=== PATIENT | male | born 1970 | race Caucasian/White ===

== ENCOUNTER 2016-04-20 03:38 | Inpatient (IN) | payer MEDICARE, MEDICAID ==
[2016-04-20] VITALS (10 sets, daily range): BP systolic 78–124; BP diastolic 44–68
[~2016-04-20] VITALS: Ht 165.1 cm; Wt 63.5 kg
--- NOTE | ~2016-04-20 | O ---
[place], [place] OPERATIVE NOTE [id number] UNIT #: [id number] ROOM: 406 DOCTOR: PAMELA DURAN MD BIRTHDATE: [birth year] DOS: 04/20/2016 PREOPERATIVE DIAGNOSIS: Large left elbow abscess. POSTOPERATIVE DIAGNOSIS: Large left elbow abscess. PROCEDURE: Incision and drainage and packing of the abscess. SURGEON: Pamela Duran MD DESCRIPTION OF PROCEDURE: After MAC anesthesia, the patient's left elbow was prepped and draped. There is fluctuant area AND An 11 blade used to decompress it. A large amount of pus came out, cultures were taken. Incision was enlarged to accommodate my finger to break all the loculi which was done. After all the pus was evacuated, the area was cleaned with peroxide and Betadine and then 1 inch iodoform gauze inserted as a pack and dressing applied. The patient tolerated the procedure well and was sent to room. Pamela Duran MD CM:OPRECORD:OPERATIVE NOTE [id number] PAMELA DURAN MD 05/25/16 1338 interface
--- NOTE | ~2016-04-20 | PR ---
[place], [place] PROGRESS NOTE [facility]: [id number] UNIT #: [id number] ROOM: 406 DOCTOR: PAMELA DURAN MD BIRTHDATE: [birth year] DOS: 04/22/2016 This is postop visit day 2. The patient had a very large abscess, left elbow and extensive cellulitis around it. It was drained out. Today, I came in and removed his bandage and removed the packing and put a 4 x 4 in there. There is still some induration around the area of drainage and extending inferiorly to the volar surface of the forearm. However, this looks much better than the day we did surgery on him and the extensive edema of the posterior part upper arm and the posterior part of the lower arm is almost gone. We will follow with the patient. From my standpoint, he is ready to be discharged, but will be up to the family physician. Pamela Duran MD CM:PNTRANS [id number] PAMELA DURAN MD 05/25/16 1233 interface
--- NOTE | ~2016-04-20 | PR ---
[place], [place] PROGRESS NOTE NAME: CELE ALONZO [facility] #: [id number] UNIT #: [id number] ROOM: 406 DOCTOR: PAMELA DURAN MD BIRTHDATE: [birth year] DOS: 04/21/2016 SUBJECTIVE: The patient is status post incision and drainage of large abscess of the left elbow. The patient is still complaining a lot of pain, although he is on Toradol. He is not getting out of bed actually. I examined his left arm. There is a swelling that is receding rather. Dressings with the packing is still in there. His legs are nontender; however, since the postop, I have been stressing on him to get up and walk around and also he is trying not to extend his elbow. IMPRESSION: Status post incision and drainage of large left elbow abscess with extensive cellulitis around it. Clinically, doing better, but he is resisting motion of his elbow, which he should be trying to extend this, so it would not freeze there. Also, I told him that he needs to get up and walk. As for the pain medication, I think the reason he is on Toradol is because he has a history of drug abuse and I think that is a good idea, not to give him narcotic; however, if we need then we can add on Vicodin and narco type of medication, which I had ordered postop, so we will see if we can give him something different with it and help him with the pain. As far as discharge, I think it is up to the admitting physician when he could be discharged. From my standpoint, I will change the dressing in 2 days, which would be tomorrow whether he is still in the hospital or not. If he is here, I will change it myself. If not, then, we will make some arrangement for that to be changed especially packing has to be changed. We do not have any culture report yet, so if the culture report changes, then we will change the antibiotics accordingly. Pamela Duran MD CM:PNTRANS [id number] PAMELA DURAN MD 04/21/16 2228 interface
[~2016-04-20 03:38] MED LIST: ADDERALL XR20 MG PO; ADDERALL20 MG PO; ANAPROX DS550 MG PO; ATIVAN; BACTROBAN OINT22 GM PO; CATAFLAM50 MG PO; CEPHALEXIN500 M1 PO; CIPRO500 MG PO; CORDROL20 MG PO; CYCLOBENZAPRINE10 MG PO; FIORICET 325 MG1 TAB PO; FLEXERIL10 MG PO; FLEXERIL5 MG PO; FLONASE0.05 MG/AC NS; HYDROCODONE BIT1 T11 PO; KEFLEX500 MG PO; MOTRIN CHI100 MG/51 PO; MOTRIN800 MG PO; Motrin,Rufen800 MG PO; NAPROSYN500 MG PO; NEURONTIN300 MG PO; NKHM; NORCO 10-325 T1 EACH PO; PERCOCET 325 MG1 TA2 PO; PERCOCET 325 MG1 TA3 PO; PERCOCET 325 MG1 TAB PO; PERCOCET 650 MG1 TA1; PREDNISONE20 MG PO; ROBAXIN500 MG PO; TORADOL10 MG PO; TRAMADOL HCL50 MG PO; VICODIN 5/500 505 MG PO; VICODIN ES 7501 TAB PO; VOLTAREN50 M1 PO; WELLBUTRIN75 MG PO; XANAX1 MG; XANAX1 MG PO; ZANTAC150 MG PO
[2016-04-20] MEDS ORDERED: ADDERALL15 MG PO (03:45)
[2016-04-20 04:18] LABS: BASO # 0.1 10*3/uL (0.0-0.1); BASO % 0.4 % (0.0-1.0); EOS % 0.2 % (1.0-4.0); HEMATOCRIT 43.7 % (42.0-52.0); LYMPH # 1.8 10*3/uL (1.3-4.4); LYMPH % 11.4 % (27.0-41.0); MEAN CELL VOLUME 87.9 fl (80.0-94.0); MEAN CORPUSCULAR HGB 30.2 pg (27.0-31.0); MEAN CORPUSCULAR HGB CONC 34.3 g/dl (33.0-37.0); MEAN PLATELET VOLUME 10.2 fl (9.6-12.3); MONO # 1.2 10*3/uL (0.1-1.0); MONO % 7.7 % (3.0-9.0); NEUT # 12.8 10*3/uL (2.3-7.9); PLATELET COUNT AUTOMATED 208 10*3/uL (130-400); RED BLOOD COUNT 4.97 10*6/uL (4.50-5.90); RED CELL DISTRI WIDTH 13.1 % (0-14.5); WHITE BLOOD COUNT 15.9 10*3/uL (4.8-10.8)
[2016-04-20 04:31] LABS: BILIRUBIN NEGATIVE (NEGATIVE); BLOOD 2+ (NEGATIVE); CLARITY CLEAR (CLEAR); COLOR YELLOW (YELLOW); GLUCOSE NEGATIVE (NEGATIVE); KETONE NEGATIVE (NEGATIVE); LEUKO ESTERASE NEGATIVE (NEGATIVE); NITRITE NEGATIVE (NEGATIVE); PROTEIN NEGATIVE (NEGATIVE); SPECIFIC GRAVITY <= 1.005 (1.005-1.030); UROBILINOGEN 0.2 E.U./dl (0.2-1.0)
[2016-04-20 04:41] LABS: ALBUMIN 3.2 gm/dl (3.1-4.5); ALKALINE PHOSPHATASE 54 U/L (45-117); BILIRUBIN, TOTAL 0.5 mg/dl (0.2-1.0); BUN 11 mg/dl (7-24); CARBON DIOXIDE 26 mmol/L (21-32); CHLORIDE 101 mmol/L (98-107); EST GLOM FILT AFRICAN AMERICAN > 60 ml/min; GLUCOSE 125 mg/dL (65-99); POTASSIUM 3.7 mmol/L (3.5-5.1); SGOT/AST 16 IU/L (3-35); SGPT/ALT 20 U/L (12-78); SODIUM 136 mmol/L (136-145); TOTAL PROTEIN 7.2 gm/dL (6.4-8.2)
[2016-04-20 04:41] LABS: RBC 16-20 rbc/hpf (0-2); URINE REFLEX COMMENT YES (NO); WBC 0-2 wbc/hpf (0-5)
[2016-04-20 04:42] LABS: URINE AMPHETAMINES < 1000 (1000ng/ml); URINE BARBITURATES < 200 (200ng/ml); URINE COCAINE < 300 (300ng/ml)
[2016-04-20 06:58] LABS: MAGNESIUM 1.9 mg/dL (1.5-2.1)
[2016-04-20 06:59] LABS: HEMOGLOBIN A1c 5.3 % (4.8-5.6)
[2016-04-20 07:34] LABS: FOLIC ACID 5.48 ng/mL (>5.38)
[2016-04-21] VITALS: BP 84/48
[2016-04-21 02:00] VITALS: BP 97/58
[2016-04-21 06:25] LABS: BASO % 0.8 % (0.0-1.0); EOS # 0.1 10*3/uL (0.0-0.4); EOS % 1.5 % (1.0-4.0); LYMPH # 1.5 10*3/uL (1.3-4.4); LYMPH % 28.8 % (27.0-41.0); MEAN CORPUSCULAR HGB 29.5 pg (27.0-31.0); MEAN PLATELET VOLUME 9.5 fl (9.6-12.3); MONO # 0.6 10*3/uL (0.1-1.0); MONO % 10.6 % (3.0-9.0); NEUT # 3.1 10*3/uL (2.3-7.9); NEUT % 58.1 % (47.0-73.0); RED BLOOD COUNT 3.87 10*6/uL (4.50-5.90); RED CELL DISTRI WIDTH 13.6 % (0-14.5); WHITE BLOOD COUNT 5.3 10*3/uL (4.8-10.8)
[2016-04-21 06:44] LABS: ALBUMIN 2.3 gm/dl (3.1-4.5); ALKALINE PHOSPHATASE 139 U/L (45-117); BILIRUBIN, TOTAL 0.3 mg/dl (0.2-1.0); BUN 10 mg/dl (7-24); CARBON DIOXIDE 24 mmol/L (21-32); CHLORIDE 110 mmol/L (98-107); EST GLOM FILT AFRICAN AMERICAN > 60 ml/min; GLUCOSE 99 mg/dL (65-99); MAGNESIUM 2.1 mg/dL (1.5-2.1); POTASSIUM 4.3 mmol/L (3.5-5.1); SGOT/AST 69 IU/L (3-35); SGPT/ALT 46 U/L (12-78); SODIUM 140 mmol/L (136-145); TOTAL PROTEIN 5.4 gm/dL (6.4-8.2)
[2016-04-21 07:41] VITALS: BP 72/58
[2016-04-21 07:58] LABS: HEMATOCRIT 35.6 % (42.0-52.0); HEMOGLOBIN 11.4 g/dl (14.0-18.0); PLATELET COUNT AUTOMATED 125 10*3/uL (130-400)
[2016-04-21 12:00] VITALS: BP 105/49
[2016-04-21 16:00] VITALS: BP 109/52
[2016-04-21 20:00] VITALS: BP 117/72
[2016-04-22] VITALS: BP 107/58; BP 108/67
[2016-04-22 06:53] LABS: HEMOGLOBIN 12.5 g/dl (14.0-18.0); MEAN CELL VOLUME 89.4 fl (80.0-94.0); MEAN CORPUSCULAR HGB 29.4 pg (27.0-31.0); MEAN CORPUSCULAR HGB CONC 32.9 g/dl (33.0-37.0); MEAN PLATELET VOLUME 9.5 fl (9.6-12.3); RED BLOOD COUNT 4.25 10*6/uL (4.50-5.90); RED CELL DISTRI WIDTH 13.4 % (0-14.5); WHITE BLOOD COUNT 5.3 10*3/uL (4.8-10.8)
[2016-04-22 06:56] LABS: PLATELET COUNT AUTOMATED 184 10*3/uL (130-400)
[2016-04-22 07:01] LABS: BUN 7 mg/dl (7-24); CARBON DIOXIDE 26 mmol/L (21-32); CHLORIDE 111 mmol/L (98-107); EST GLOM FILT AFRICAN AMERICAN > 60 ml/min; GLUCOSE 79 mg/dL (65-99); MAGNESIUM 2.3 mg/dL (1.5-2.1); PHOSPHOROUS 2.7 mg/dL (2.5-4.9); POTASSIUM 4.5 mmol/L (3.5-5.1); SODIUM 143 mmol/L (136-145)
[2016-04-22 07:52] LABS: ATYPICAL LYMPHS 5 % (0-0); BASOPHIL # 0.1 10*3/uL (0-0.1); BASOPHILS 2 % (0-1); EOSINOPHIL # 0.2 10*3/uL (0-0.4); EOSINOPHILS 3 % (1-4); LYMPHOCYTE # 2.2 10*3/uL (1.3-4.4); MONOCYTE # 0.3 10*3/uL (0.1-1.0); NEUTROPHIL # 2.5 10*3/uL (2.3-7.9); NEUTROPHILS 48 % (47-73); PLATELET SUFFICIENCY NORMAL (NORMAL); TOTAL CELLS COUNTED 100 #CELLS
[2016-04-22 08:00] VITALS: BP 136/67
[2016-04-22 12:00] VITALS: BP 146/62
[2016-04-22] MEDS ORDERED: DOXYCYCLINE100 M3 PO (13:20)
[2016-04-22] MEDS ORDERED: Motrin,Rufen800 MG PO (13:22)
== END 2016-04-22 15:18 | disposition home or self-care (01) | DRG 871 ==
LOC: ED 03:38 → EDHOLD 05:23 → 4E 11:55
PROVIDERS: Emergency Medicine Emergency Medical Services; Hospitalist; Internal Medicine
PROC: 0H9EXZZ Drainage of Left Lower Arm Skin, External Approach (ICD-10-PCS; principal; 2016-04-20)
DX: A41.9 Sepsis, unspecified organism (principal); E43 Unspecified severe protein-calorie malnutrition; L02.414 Cutaneous abscess of left upper limb; L03.114 Cellulitis of left upper limb; F11.23 Opioid dependence with withdrawal; F90.9 Attention-deficit hyperactivity disorder, unspecified type; R79.82 Elevated C-reactive protein (CRP); F17.200 Nicotine dependence, unspecified, uncomplicated; E55.9 Vitamin D deficiency, unspecified; R70.0 Elevated erythrocyte sedimentation rate; Z79.899 Other long term (current) drug therapy; Z88.0 Allergy status to penicillin; Z91.041 Radiographic dye allergy status; Z80.1 Family history of malignant neoplasm of trachea, bronchus and lung; Z80.8 Family history of malignant neoplasm of other organs or systems; Z68.23 Body mass index [BMI] 23.0-23.9, adult; Z82.49 Family history of ischemic heart disease and other diseases of the circulatory system

== ENCOUNTER 2016-06-14 13:00 | Emergency (ER) | payer MEDICARE, MEDICAID ==
[~2016-06-14] VITALS: Ht 165.1 cm; Wt 71.7 kg
[~2016-06-14 13:00] MED LIST changes: +ADDERALL15 MG PO; +DOXYCYCLINE100 M3 PO
[2016-06-14 13:04] VITALS: BP 134/90
[2016-06-14] MEDS ORDERED: SUBOXONE 12 MG1 EACH SL (13:05)
== END 2016-06-14 14:36 | disposition left against medical advice (07) ==
LOC: ED 13:00
DX: S29.011A Strain of muscle and tendon of front wall of thorax, initial encounter (principal); F17.200 Nicotine dependence, unspecified, uncomplicated; Z88.0 Allergy status to penicillin; Z91.041 Radiographic dye allergy status; W45.8XXA Other foreign body or object entering through skin, initial encounter; W27.8XXA Contact with other nonpowered hand tool, initial encounter; Y93.89 Activity, other specified; Y92.89 Other specified places as the place of occurrence of the external cause; Y99.0 Civilian activity done for income or pay

== ENCOUNTER 2016-12-06 16:40 | Emergency (ER) | payer MEDICARE ==
[~2016-12-06] VITALS: Wt 81.6 kg
[~2016-12-06 16:40] MED LIST changes: +SUBOXONE 12 MG1 EACH SL
[2016-12-06 17:56] VITALS: BP 110/56
[2016-12-06] MEDS ORDERED: Zofran4 MG PO (17:56)
== END 2016-12-06 19:37 | disposition home or self-care (01) ==
LOC: ED 16:40
DX: F11.29 Opioid dependence with unspecified opioid-induced disorder (principal); Z88.0 Allergy status to penicillin; Z91.041 Radiographic dye allergy status; Z79.899 Other long term (current) drug therapy; Z87.891 Personal history of nicotine dependence

== ENCOUNTER 2017-02-21 12:29 | Emergency (ER) | payer MEDICARE ==
[~2017-02-21 12:29] MED LIST changes: +Zofran4 MG PO
[2017-02-21 12:40] VITALS: BP 127/74
== END 2017-02-21 14:28 | disposition home or self-care (01) ==
LOC: ED 12:29
DX: S66.911A Strain of unspecified muscle, fascia and tendon at wrist and hand level, right hand, initial encounter (principal); F17.200 Nicotine dependence, unspecified, uncomplicated; F11.10 Opioid abuse, uncomplicated; Z88.0 Allergy status to penicillin; Z88.8 Allergy status to other drugs, medicaments and biological substances; W22.01XA Walked into wall, initial encounter; Y93.89 Activity, other specified; Y92.89 Other specified places as the place of occurrence of the external cause; Y99.8 Other external cause status

== ENCOUNTER 2017-03-13 08:05 | Inpatient (IN) | payer MEDICARE ==
[~2017-03-13] VITALS: Ht 165.1 cm; Wt 57.6 kg
[2017-03-13 08:05] VITALS: BP 138/83
[2017-03-13 08:27] VITALS: BP 134/84
[2017-03-13 08:30] VITALS: BP 106/71; BP 126/83
[2017-03-13 08:31] LABS: BASO # 0.1 10*3/uL (0.0-0.1); BASO % 0.7 % (0.0-1.0); EOS # 0.1 10*3/uL (0.0-0.4); EOS % 1.5 % (1.0-4.0); HEMATOCRIT 42.6 % (42.0-52.0); HEMOGLOBIN 14.1 g/dl (14.0-18.0); LYMPH # 1.9 10*3/uL (1.3-4.4); LYMPH % 25.2 % (27.0-41.0); MEAN CELL VOLUME 88.6 fl (80.0-94.0); MEAN CORPUSCULAR HGB 29.3 pg (27.0-31.0); MEAN CORPUSCULAR HGB CONC 33.1 g/dl (33.0-37.0); MEAN PLATELET VOLUME 8.8 fl (9.6-12.3); MONO # 0.5 10*3/uL (0.1-1.0); MONO % 6.4 % (3.0-9.0); NEUT % 65.9 % (47.0-73.0); PLATELET COUNT AUTOMATED 168 10*3/uL (130-400); RED BLOOD COUNT 4.81 10*6/uL (4.50-5.90); RED CELL DISTRI WIDTH 14.6 % (0-14.5); WHITE BLOOD COUNT 7.5 10*3/uL (4.8-10.8)
--- NOTE | 2017-03-13 08:38 | NUR ---
[place] STAFF WILL ASSESS PATIENT FOR NEW VISION SERVICES. ZO SHORE B.A. SUCTION OPERATOR
[2017-03-13 08:39] LABS: ACT PARTIAL THROMBO TIME 23.5 SECONDS (20.8-31.5)
[2017-03-13 08:49] LABS: ALBUMIN 3.7 gm/dl (3.1-4.5); ALKALINE PHOSPHATASE 67 U/L (45-117); BUN 13 mg/dl (7-24); CHLORIDE 101 mmol/L (98-107); CREATININE 1.01 mg/dL (0.70-1.30); POTASSIUM 3.6 mmol/L (3.5-5.1); SGOT/AST 24 IU/L (3-35); SGPT/ALT 23 U/L (12-78); SODIUM 138 mmol/L (136-145); TOTAL PROTEIN 7.8 gm/dL (6.4-8.2)
[2017-03-13 08:51] LABS: TROPONIN I < 0.015 ng/ml (<0.045)
[2017-03-13 08:57] LABS: ETHYL ALCOHOL < 3.0 mg/dl (<3)
[2017-03-13 09:20] VITALS: BP 106/71
--- NOTE | 2017-03-13 09:51 | NUR ---
Time: 919 A 46 year old MALE admitted to 5E under services of SURJIT VITALE DO. Pt. arrived via stretcher from ER. Chief complaint: HEROIN OVERDOSE. MAXIM LAO
--- NOTE | 2017-03-13 11:00 | NUR ---
PT REQUESTED MEDICATION FOR A HEADACHE, MUSCLE ACHES AND ANXIETY AND WAS GIVEN PRN MEDICATIONS.
--- NOTE | 2017-03-13 11:59 | NUR ---
[place] STAFF ASSESSED PATIENT FOR NEW VISION SERVICES. [facility] STAFF REVIEWED REFERRALS SOURCES WITH PATIENT. PATIENT STATED THAT HE IS UNDECIDED ABOUT NEW VISION SERVICES AT THIS TIME. [place] STAFF WILL FOLLOW-UP WITH PATIENT LATER TODAY. PATIENT DID REQUEST A LIST OF NA MEETINGS. ZO MIRELES B.A. SEASONAL DELIVERY DRIVER
--- NOTE | 2017-03-13 12:01 | NUR ---
PT RESTING COMFORTABLY WITH NO COMPLAINTS.
--- NOTE | 2017-03-13 12:32 | NUR ---
DR MICHEL WAS NOTIFIED THE PT MED REC IS COMPLETE AND OF THE PT CONCERNS ABOUT A "SPOT" FOUND ON HIS LUNG 3-4 YEARS AGO.
[2017-03-13 16:00] VITALS: BP 100/50
[2017-03-13 20:00] VITALS: BP 89/51
[2017-03-13 21:57] LABS: BILIRUBIN NEGATIVE (NEGATIVE); BLOOD NEGATIVE (NEGATIVE); CLARITY SL CLOUDY (CLEAR); COLOR YELLOW (YELLOW); GLUCOSE NEGATIVE (NEGATIVE); KETONE NEGATIVE (NEGATIVE); LEUKO ESTERASE NEGATIVE (NEGATIVE); NITRITE NEGATIVE (NEGATIVE); PH 6.5 (5.0-9.0); UROBILINOGEN 0.2 E.U./dl (0.2-1.0)
[2017-03-13 22:04] LABS: RBC 0-2 rbc/hpf (0-2)
[2017-03-13 22:06] LABS: URINE AMPHETAMINES < 1000 (1000ng/ml); URINE BARBITURATES < 200 (200ng/ml); URINE BENZODIAZEPINES < 200 (200ng/ml); URINE CANNABINOIDS (THC) < 50 (50ng/ml); URINE COCAINE > 300 (300ng/ml); URINE METHADONE < 300 (300ng/ml); URINE OPIATES > 300 (300ng/ml); URINE PHENCYCLIDINE < 25 (25ng/ml)
[2017-03-14] VITALS: BP 97/58
[2017-03-14 04:00] VITALS: BP 93/55
--- NOTE | 2017-03-14 06:07 | NUR ---
PATIENT RESTING IN BED WITH EYES CLOSED. NO SIGNS OR SYMPTOMS OF DISTRESS NOTED. AROUSES TO VERBAL STIMULI. WILL CONTINUE TO MONITOR. CALL LIGHT IN REACH.
--- NOTE | 2017-03-14 07:30 | NUR ---
PATIENT RESTING COMFORTABLY IN BED. PATIENT HAD COMPLAINT OF A MINOR HEADACHE BUT DENIES ANY OTHER PAIN OR DISCOMFORT UPON ASSESSMENT. PATIENT HAS PADDED SIDE RAILS FOR SEIZURE PRECAUTIONS, BUT DENIES ANY TREMORS OR OTHER SIGN OF DT'S. PATIENT DENIES SOB BUT HAS INS WHEEZES THROUGHOUT THE RIGHT LUNG FIELD. CALL LIGHT WITHIN REACH SEE SHIFT ASSESSMENT.
--- NOTE | 2017-03-14 07:55 | NUR ---
SCHEDULED DOSE OF SUBUTEX GIVEN.
[2017-03-14 08:00] VITALS: BP 90/50
[2017-03-14 12:00] VITALS: BP 129/62
--- NOTE | 2017-03-14 13:20 | NUR ---
PT GIVEN ROBAXIN, REQUIP, AND TYLENOL PER PT REQUEST FOR MUSCLE SPASMS, CRAMPING AND HEADACHE. WILL CONTINUE TO MONITOR AND REASSESS.
--- NOTE | 2017-03-14 14:33 | NUR ---
[place] STAFF SPOKE WITH PATIENT AGAIN ABOUT OPTIONS FOR AFTERCARE PLAN. PATIENT WAS GIVEN A LIST OF NARCOTICS ANONYMOUS MEETINGS IN THE AREA. PATIENT STATED THAT HE IS INTERESTED IN GOING [facility] SUBOX[facility] TREAT[facility]. PATIENT STATED THAT HE WANTS TO SCHEDULE HIS OWN APPOINTMENT DUE TO PROBLEMS WITH TRANSPORTATION. [place] STAFF MADE SUGGESTIONS ON HOW TO OBTAIN TRANSPORTATION THROUGH HIS INSURANCE OR CARTS THROUGH [facility]. PATIENT STATED THAT HE HAS [employer] PHONE NUMBER AND HE WILL CALL IF HE NEEDS ANY OTHER REFERRALS. ZO SHORE B.A. DIRECTOR STUDENT UNION
[2017-03-14 16:00] VITALS: BP 114/65
--- NOTE | 2017-03-14 16:37 | NUR ---
SCHEDULED DOSE OF SUBUTEX GIVEN. PT ALSO GIVEN MOTRIN PER PT REQUEST FOR UNRELIEVED HEADACHE. WILL CONTINUE TO MONITOR AND REASSESS.
[2017-03-14 20:00] VITALS: BP 127/71
--- NOTE | 2017-03-14 23:23 | NUR ---
PATIENT MEDICATED WITH TYLENOL FOR COMPLAINTS OF A HEADACHE. SAID HE HAS HAD A HEADACHE EVER SINCE HE'S BEEN HERE. WILL MONITOR FOR EFFECTIVENESS. CALL LIGHT IN REACH.
[2017-03-15] VITALS: BP 123/79
--- NOTE | 2017-03-15 01:00 | NUR ---
TYLENOL SLIGHTLY EFFECTIVE AT THIS TIME. SAID HE STILL HAS HIS HEADACHE BUT NOT QUITE BAD. WILL CONTINUE TO MONITOR. CALL LIGHT IN REACH.
[2017-03-15 07:44] VITALS: BP 118/76
[2017-03-15] MEDS ORDERED: NATURE'S BLEND F1 MG PO (10:40)
[2017-03-15] MEDS ORDERED: NATURE'S BLEND100 M2 PO (10:40)
[2017-03-15] MEDS ORDERED: ATARAX,VISTARIL50 MG PO (10:40)
[2017-03-15 11:45] VITALS: BP 108/72
[2017-03-15 16:00] VITALS: BP 130/83
--- NOTE | 2017-03-15 19:10 | NUR ---
Discharge instructions reviewed with patient/family. Patient receptive and verbalizes understanding. Follow-up care arranged. Written instructions given to patient/family. PETRA ANDRADE
== END 2017-03-15 19:10 | disposition home or self-care (01) | DRG 918 ==
LOC: ED 08:05 → 5E 08:17 → EDHOLD 08:17 → 5E 08:25
PROVIDERS: Emergency Medicine; ADMIT Internal Medicine
DX: T40.1X1A Poisoning by heroin, accidental (unintentional), initial encounter (principal); R65.10 Systemic inflammatory response syndrome (SIRS) of non-infectious origin without acute organ dysfunction; F11.23 Opioid dependence with withdrawal; F19.10 Other psychoactive substance abuse, uncomplicated; F90.9 Attention-deficit hyperactivity disorder, unspecified type; J44.9 Chronic obstructive pulmonary disease, unspecified; R00.0 Tachycardia, unspecified; D72.810 Lymphocytopenia; R73.9 Hyperglycemia, unspecified; Z80.1 Family history of malignant neoplasm of trachea, bronchus and lung; Z80.8 Family history of malignant neoplasm of other organs or systems; Z80.0 Family history of malignant neoplasm of digestive organs; Z88.0 Allergy status to penicillin; Z91.041 Radiographic dye allergy status; Z71.6 Tobacco abuse counseling; Z72.0 Tobacco use; Z82.49 Family history of ischemic heart disease and other diseases of the circulatory system; Y92.89 Other specified places as the place of occurrence of the external cause

== ENCOUNTER 2019-03-12 15:37 | Emergency (ER) | payer MEDICAID ==
[~2019-03-12] VITALS: Ht 165.1 cm; Wt 66.2 kg
[~2019-03-12 15:37] MED LIST changes: +ATARAX,VISTARIL50 MG PO; +NATURE'S BLEND F1 MG PO; +NATURE'S BLEND100 M2 PO
[2019-03-12 16:30] LABS: BASO % 0.1 % (0.0-1.0); EOS % 0.1 % (1.0-4.0); HEMATOCRIT 43.4 % (42.0-52.0); HEMOGLOBIN 13.9 g/dl (14.0-18.0); LYMPH # 1.2 10*3/uL (1.3-4.4); LYMPH % 17.4 % (27.0-41.0); MEAN CELL VOLUME 89.5 fl (80.0-94.0); MEAN CORPUSCULAR HGB 28.7 pg (27.0-31.0); MEAN PLATELET VOLUME 9.1 fl (9.6-12.3); MONO # 0.5 10*3/uL (0.1-1.0); MONO % 6.8 % (3.0-9.0); NEUT # 5.4 10*3/uL (2.3-7.9); NEUT % 75.3 % (47.0-73.0); PLATELET COUNT AUTOMATED 165 10*3/uL (130-400); RED BLOOD COUNT 4.85 10*6/uL (4.50-5.90); RED CELL DISTRI WIDTH 13.8 % (0-14.5); WHITE BLOOD COUNT 7.1 10*3/uL (4.8-10.8)
[2019-03-12 16:44] LABS: ACT PARTIAL THROMBO TIME 29.6 SECONDS (20.0-32.1)
[2019-03-12 16:51] LABS: ALBUMIN 3.5 gm/dl (3.1-4.5); ALKALINE PHOSPHATASE 63 U/L (45-117); BUN 11 mg/dl (7-24); CHLORIDE 106 mmol/L (98-107); CREATININE 1.28 mg/dL (0.70-1.30); LIPASE 163 U/L (73-393); POTASSIUM 3.8 mmol/L (3.5-5.1); SGOT/AST 30 IU/L (3-35); SODIUM 137 mmol/L (136-145); TOTAL PROTEIN 7.2 gm/dL (6.4-8.2)
[2019-03-12 16:54] LABS: SGPT/ALT 39 U/L (12-78); TROPONIN I < 0.015 ng/ml (<0.045)
[2019-03-12 19:26] VITALS: BP 105/61
[2019-03-12] MEDS ORDERED: PREDNISONE20 M1 PO (19:47)
[2019-03-12] MEDS ORDERED: VENT7GM INH (19:47)
== END 2019-03-12 20:00 | disposition home or self-care (01) ==
LOC: ED 15:37
PROVIDERS: Emergency Medicine
DX: T40.1X1A Poisoning by heroin, accidental (unintentional), initial encounter (principal); R40.20 Unspecified coma; R05 Cough; J44.9 Chronic obstructive pulmonary disease, unspecified; F14.10 Cocaine abuse, uncomplicated; F17.200 Nicotine dependence, unspecified, uncomplicated; Z88.0 Allergy status to penicillin; Z91.041 Radiographic dye allergy status; Z79.899 Other long term (current) drug therapy

== ENCOUNTER 2019-04-05 09:39 | Inpatient (IN) | payer MEDICARE, MEDICAID ==
[~2019-04-05] VITALS: Ht 165.1 cm; Wt 59.4 kg
[~2019-04-05 09:39] MED LIST changes: +PREDNISONE20 M1 PO; +VENT7GM INH
[2019-04-05 09:45] VITALS: BP 119/98
[2019-04-05 10:27] LABS: BILIRUBIN NEGATIVE (NEGATIVE); BLOOD NEGATIVE (NEGATIVE); CLARITY CLEAR (CLEAR); COLOR YELLOW (YELLOW); GLUCOSE NEGATIVE (NEGATIVE); KETONE NEGATIVE (NEGATIVE); LEUKO ESTERASE NEGATIVE (NEGATIVE); NITRITE NEGATIVE (NEGATIVE); PH 7.5 (5.0-9.0); UROBILINOGEN 0.2 E.U./dl (0.2-1.0)
[2019-04-05 10:37] LABS: URINE AMPHETAMINES < 1000 (1000ng/ml); URINE BARBITURATES < 200 (200ng/ml); URINE BENZODIAZEPINES > 200 (200ng/ml); URINE CANNABINOIDS (THC) < 50 (50ng/ml); URINE COCAINE < 300 (300ng/ml); URINE METHADONE < 300 (300ng/ml); URINE OPIATES < 300 (300ng/ml)
[2019-04-05 10:39] LABS: URINE PHENCYCLIDINE < 25 (25ng/ml)
[2019-04-05 11:04] LABS: BASO % 0.5 % (0.0-1.0); EOS # 0.1 10*3/uL (0.0-0.4); EOS % 1.2 % (1.0-4.0); HEMATOCRIT 46.6 % (42.0-52.0); HEMOGLOBIN 14.9 g/dl (14.0-18.0); LYMPH # 1.7 10*3/uL (1.3-4.4); LYMPH % 21.5 % (27.0-41.0); MEAN CELL VOLUME 91.2 fl (80.0-94.0); MEAN CORPUSCULAR HGB 29.2 pg (27.0-31.0); MONO # 0.7 10*3/uL (0.1-1.0); MONO % 8.2 % (3.0-9.0); NEUT # 5.5 10*3/uL (2.3-7.9); NEUT % 68.4 % (47.0-73.0); PLATELET COUNT AUTOMATED 268 10*3/uL (130-400); RED BLOOD COUNT 5.11 10*6/uL (4.50-5.90); RED CELL DISTRI WIDTH 14.2 % (0-14.5)
[2019-04-05 11:22] LABS: ALBUMIN 3.7 gm/dl (3.1-4.5); ALKALINE PHOSPHATASE 63 U/L (45-117); BUN 9 mg/dl (7-24); CHLORIDE 104 mmol/L (98-107); CREATININE 0.98 mg/dL (0.70-1.30); POTASSIUM 4.2 mmol/L (3.5-5.1); SGOT/AST 31 IU/L (3-35); SGPT/ALT 35 U/L (12-78); SODIUM 137 mmol/L (136-145); TOTAL PROTEIN 7.7 gm/dL (6.4-8.2)
[2019-04-05 11:24] LABS: ACT PARTIAL THROMBO TIME 27.7 SECONDS (20.0-32.1)
[2019-04-05 11:29] LABS: ETHYL ALCOHOL < 3.0 mg/dl (<3)
[2019-04-05 11:42] VITALS: BP 140/65
[2019-04-05 16:00] VITALS: BP 100/58
[2019-04-05 20:00] VITALS: BP 92/59
[2019-04-06] VITALS: BP 102/66
[2019-04-06 08:00] VITALS: BP 98/58
[2019-04-06 12:00] VITALS: BP 107/56
[2019-04-06 16:00] VITALS: BP 112/79
[2019-04-06 20:00] VITALS: BP 102/62
[2019-04-07] VITALS: BP 103/66
[2019-04-07 08:00] VITALS: BP 97/58
[2019-04-07 12:00] VITALS: BP 115/71
[2019-04-07 16:00] VITALS: BP 106/72
[2019-04-07 20:00] VITALS: BP 128/81
[2019-04-08] VITALS: BP 107/66
[2019-04-08 06:36] LABS: HEMATOCRIT 46.9 % (42.0-52.0); MEAN CELL VOLUME 90.5 fl (80.0-94.0); MEAN PLATELET VOLUME 8.9 fl (9.6-12.3); PLATELET COUNT AUTOMATED 281 10*3/uL (130-400); RED BLOOD COUNT 5.18 10*6/uL (4.50-5.90); RED CELL DISTRI WIDTH 13.8 % (0-14.5); WHITE BLOOD COUNT 13.1 10*3/uL (4.8-10.8)
[2019-04-08 07:05] LABS: CREATININE 0.99 mg/dL (0.70-1.30)
[2019-04-08 07:36] LABS: PLATELET SUFFICIENCY NORMAL (NORMAL); TOTAL CELLS COUNTED 100 #CELLS
[2019-04-08 08:00] VITALS: BP 106/62
== END 2019-04-08 12:30 | disposition home or self-care (01) | DRG 206 ==
LOC: ED 09:39 → 5E 10:43 → EDHOLD 10:43 → 5E 11:08
PROVIDERS: Emergency Medicine; ADMIT Emergency Medicine
DX: S22.32XA Fracture of one rib, left side, initial encounter for closed fracture (principal); J44.1 Chronic obstructive pulmonary disease with (acute) exacerbation; W10.9XXA Fall (on) (from) unspecified stairs and steps, initial encounter; F11.99 Opioid use, unspecified with unspecified opioid-induced disorder; R73.9 Hyperglycemia, unspecified; F13.10 Sedative, hypnotic or anxiolytic abuse, uncomplicated; F17.210 Nicotine dependence, cigarettes, uncomplicated; F90.9 Attention-deficit hyperactivity disorder, unspecified type; F19.10 Other psychoactive substance abuse, uncomplicated; Z71.6 Tobacco abuse counseling; Y93.89 Activity, other specified; Y92.89 Other specified places as the place of occurrence of the external cause; Y99.8 Other external cause status; Z88.0 Allergy status to penicillin; Z88.8 Allergy status to other drugs, medicaments and biological substances; Z80.1 Family history of malignant neoplasm of trachea, bronchus and lung; Z80.0 Family history of malignant neoplasm of digestive organs

== ENCOUNTER 2019-11-26 08:47 | Emergency (ER) | payer MEDICARE, MEDICAID ==
[~2019-11-26] VITALS: Ht 152.4 cm; Wt 63.5 kg
[2019-11-26 08:51] VITALS: BP 100/60
== END 2019-11-26 11:23 | disposition home or self-care (01) ==
LOC: ED 08:47
DX: T65.91XA Toxic effect of unspecified substance, accidental (unintentional), initial encounter (principal); R56.9 Unspecified convulsions; F17.200 Nicotine dependence, unspecified, uncomplicated; Z88.0 Allergy status to penicillin; Z79.899 Other long term (current) drug therapy; Y92.89 Other specified places as the place of occurrence of the external cause

== ENCOUNTER 2019-12-27 17:54 | Emergency (ER) | payer MEDICARE, MEDICAID ==
[~2019-12-27] VITALS: Ht 165.1 cm; Wt 66.2 kg
[2019-12-27 18:00] VITALS: BP 118/78
== END 2019-12-27 19:15 | disposition left against medical advice (07) ==
LOC: ED 17:54
DX: S01.01XA Laceration without foreign body of scalp, initial encounter (principal); S09.90XA Unspecified injury of head, initial encounter; Z88.0 Allergy status to penicillin; Z91.041 Radiographic dye allergy status; X58.XXXA Exposure to other specified factors, initial encounter; Y93.89 Activity, other specified; Y92.89 Other specified places as the place of occurrence of the external cause; Y99.8 Other external cause status

== ENCOUNTER 2020-01-28 23:37 | Emergency (ER) | payer MEDICARE, MEDICAID ==
[2020-01-28 23:51] VITALS: BP 110/67
[2020-01-29 01:08] LABS: BILIRUBIN Negative (Negative); BLOOD Negative (Negative); CLARITY Clear (Clear); COLOR Yellow (Yellow); GLUCOSE Negative (Negative); KETONE Negative (Negative); LEUKO ESTERASE Negative (Negative); NITRITE Negative (Negative); SPECIFIC GRAVITY 1.015 (1.001-1.030); UROBILINOGEN 0.2 E.U./dl (0.0-1.0)
[2020-01-29 01:16] LABS: URINE BENZODIAZEPINES < 200 (200ng/ml); URINE CANNABINOIDS (THC) < 50 (50ng/ml); URINE COCAINE < 300 (300ng/ml); URINE METHADONE < 300 (300ng/ml); URINE OPIATES < 300 (300ng/ml)
[2020-01-29 01:20] LABS: HYALINE CAST 21-30
[2020-01-29 01:21] LABS: RBC 0-2 rbc/hpf (0-2)
[2020-01-29 01:23] LABS: URINE AMPHETAMINES < 1000 (1000ng/ml); URINE BARBITURATES < 200 (200ng/ml); URINE PHENCYCLIDINE < 25 (25ng/ml)
== END 2020-01-29 06:22 | disposition home or self-care (01) ==
LOC: ED 23:37
PROVIDERS: Internal Medicine
DX: T40.1X1A Poisoning by heroin, accidental (unintentional), initial encounter (principal); F17.200 Nicotine dependence, unspecified, uncomplicated; Z88.0 Allergy status to penicillin; Z91.041 Radiographic dye allergy status; Y92.89 Other specified places as the place of occurrence of the external cause

== ENCOUNTER 2020-04-01 03:25 | Emergency (ER) | payer MEDICARE, MEDICAID ==
[~2020-04-01] VITALS: Ht 177.8 cm; Wt 90.7 kg
[2020-04-01 03:34] VITALS: BP 108/58
== END 2020-04-01 04:09 | disposition home or self-care (01) ==
LOC: ED 03:25
DX: Z00.00 Encounter for general adult medical examination without abnormal findings (principal)

== ENCOUNTER 2020-04-01 18:15 | Emergency (ER) | payer MEDICARE, MEDICAID ==
[~2020-04-01] VITALS: Ht 165.1 cm; Wt 59.0 kg
[2020-04-01 18:23] VITALS: BP 133/81
== END 2020-04-01 18:25 | disposition left against medical advice (07) ==
LOC: ED 18:15
DX: T40.1X1A Poisoning by heroin, accidental (unintentional), initial encounter (principal); Z88.0 Allergy status to penicillin; Z91.041 Radiographic dye allergy status; Y92.89 Other specified places as the place of occurrence of the external cause

== ENCOUNTER → 2020-06-12 | Outpatient (CLI) | payer MEDICARE, MEDICAID | END | disposition home or self-care (01) | LOC: RESCLI 02:48 | PROVIDERS: ATTEND Internal Medicine | DX: R56.9 Unspecified convulsions (principal); M54.42 Lumbago with sciatica, left side; J44.9 Chronic obstructive pulmonary disease, unspecified; R51.9 Headache, unspecified; G89.29 Other chronic pain; H54.7 Unspecified visual loss; Z71.6 Tobacco abuse counseling; Z98.890 Other specified postprocedural states; Z88.0 Allergy status to penicillin ==

== ENCOUNTER → 2020-09-11 | Outpatient (CLI) | payer MEDICARE, MEDICAID | END | disposition home or self-care (01) | LOC: RESCLI 00:51 | PROVIDERS: ATTEND Internal Medicine | DX: I70.0 Atherosclerosis of aorta (principal); E55.9 Vitamin D deficiency, unspecified; J43.9 Emphysema, unspecified; M54.42 Lumbago with sciatica, left side; R56.9 Unspecified convulsions; E78.5 Hyperlipidemia, unspecified; F11.23 Opioid dependence with withdrawal; Z79.899 Other long term (current) drug therapy; Z88.0 Allergy status to penicillin; Z71.6 Tobacco abuse counseling; Z72.0 Tobacco use ==

== ENCOUNTER 2020-11-09 00:20 | Emergency (ER) | payer MEDICARE, MEDICAID ==
[~2020-11-09] VITALS: Ht 170.1 cm; Wt 63.5 kg
[2020-11-09 01:43] LABS: BASO % 0.3 % (0.0-1.0); EOS % 0.1 % (1.0-4.0); HEMATOCRIT 41.9 % (42.0-52.0); LYMPH # 0.7 10*3/uL (1.3-4.4); LYMPH % 5.7 % (27.0-41.0); MEAN CELL VOLUME 87.7 fl (80.0-94.0); MEAN CORPUSCULAR HGB 28.2 pg (27.0-31.0); MEAN CORPUSCULAR HGB CONC 32.2 g/dl (33.0-37.0); MEAN PLATELET VOLUME 8.5 fl (9.6-12.3); MONO # 0.7 10*3/uL (0.1-1.0); MONO % 5.7 % (3.0-9.0); NEUT # 10.7 10*3/uL (2.3-7.9); NEUT % 87.9 % (47.0-73.0); PLATELET COUNT AUTOMATED 215 10*3/uL (130-400); RED BLOOD COUNT 4.78 10*6/uL (4.50-5.90); RED CELL DISTRI WIDTH 14.9 % (0-14.5); WHITE BLOOD COUNT 12.2 10*3/uL (4.8-10.8)
[2020-11-09 01:58] LABS: ALBUMIN 3.7 gm/dl (3.1-4.5); ALKALINE PHOSPHATASE 124 U/L (45-117); BUN 26 mg/dl (7-24); CHLORIDE 104 mmol/L (98-107); CREATININE 1.06 mg/dL (0.70-1.30); POTASSIUM 3.9 mmol/L (3.5-5.1); SGOT/AST 64 IU/L (3-35); SGPT/ALT 50 U/L (12-78); SODIUM 135 mmol/L (136-145); TOTAL PROTEIN 7.4 gm/dL (6.4-8.2)
[2020-11-09 06:35] VITALS: BP 101/60
== END 2020-11-09 06:50 | disposition home or self-care (01) ==
LOC: ED 00:20
PROVIDERS: Emergency Medicine
DX: T50.901A Poisoning by unspecified drugs, medicaments and biological substances, accidental (unintentional), initial encounter (principal); R40.20 Unspecified coma; J44.9 Chronic obstructive pulmonary disease, unspecified; F90.9 Attention-deficit hyperactivity disorder, unspecified type; F17.210 Nicotine dependence, cigarettes, uncomplicated; Z88.0 Allergy status to penicillin; Z91.041 Radiographic dye allergy status; Z98.890 Other specified postprocedural states; Y92.89 Other specified places as the place of occurrence of the external cause

== ENCOUNTER 2022-02-07 21:02 | Emergency (ER) | payer MEDICARE, MEDICAID ==
[~2022-02-07] VITALS: Ht 165.1 cm; Wt 66.7 kg
[2022-02-07 21:08] VITALS: BP 115/61
[2022-02-07] MEDS ORDERED: Motrin,Rufen800 MG PO (22:34)
[2022-02-07] MEDS ORDERED: TYLENOL EXTRA500 MG PO (22:34)
== END 2022-02-07 22:52 | disposition home or self-care (01) ==
LOC: ED 21:02
DX: S69.91XA Unspecified injury of right wrist, hand and finger(s), initial encounter (principal); F17.200 Nicotine dependence, unspecified, uncomplicated; Z88.0 Allergy status to penicillin; Z91.041 Radiographic dye allergy status; W22.8XXA Striking against or struck by other objects, initial encounter; Y93.89 Activity, other specified; Y92.89 Other specified places as the place of occurrence of the external cause; Y99.8 Other external cause status

== ENCOUNTER 2022-04-07 12:10 | Emergency (ER) | payer MEDICARE, MEDICAID ==
[~2022-04-07] VITALS: Ht 165.1 cm; Wt 66.7 kg
[~2022-04-07 12:10] MED LIST changes: +TYLENOL EXTRA500 MG PO
[2022-04-07 13:21] VITALS: BP 117/69
[2022-04-07 14:17] LABS: BASO # 0.1 10*3/uL (0.0-0.1); BASO % 0.7 % (0.0-1.0); EOS # 0.1 10*3/uL (0.0-0.4); EOS % 1.5 % (1.0-4.0); HEMATOCRIT 47.8 % (42.0-52.0); LYMPH # 1.8 10*3/uL (1.3-4.4); LYMPH % 23.6 % (27.0-41.0); MEAN CELL VOLUME 92.8 fl (80.0-94.0); MEAN CORPUSCULAR HGB 29.7 pg (27.0-31.0); MEAN PLATELET VOLUME 8.6 fl (9.6-12.3); MONO # 0.5 10*3/uL (0.1-1.0); MONO % 6.5 % (3.0-9.0); NEUT # 5.1 10*3/uL (2.3-7.9); NEUT % 67.4 % (47.0-73.0); PLATELET COUNT AUTOMATED 230 10*3/uL (130-400); RED BLOOD COUNT 5.15 10*6/uL (4.50-5.90); RED CELL DISTRI WIDTH 13.5 % (0-14.5); WHITE BLOOD COUNT 7.6 10*3/uL (4.8-10.8)
[2022-04-07 14:37] LABS: ALKALINE PHOSPHATASE 55 U/L (46-116); BUN 10 mg/dl (9-23); CHLORIDE 103 mmol/L (98-107); POTASSIUM 4.1 mmol/L (3.4-5.1); SGPT/ALT 17 U/L (10-49); TOTAL PROTEIN 7.7 gm/dL (6.0-8.0)
[2022-04-07] MEDS ORDERED: CEPHALEXIN500 M1 PO (16:49)
[2022-04-07] MEDS ORDERED: Motrin,Rufen800 MG PO (17:31)
== END 2022-04-07 16:58 | disposition home or self-care (01) ==
LOC: ED 12:10
PROVIDERS: Physician Assistant
DX: L03.116 Cellulitis of left lower limb (principal); L03.115 Cellulitis of right lower limb; Z88.0 Allergy status to penicillin; Z91.041 Radiographic dye allergy status; Z87.891 Personal history of nicotine dependence

== ENCOUNTER 2022-04-29 19:00 | Emergency (ER) | payer MEDICARE, OTHER ==
[~2022-04-29] VITALS: Ht 172.7 cm; Wt 81.6 kg
[2022-04-29 20:21] LABS: BASO # 0.1 10*3/uL (0.0-0.1); BASO % 1.4 % (0.0-1.0); EOS # 0.1 10*3/uL (0.0-0.4); EOS % 1.5 % (1.0-4.0); HEMATOCRIT 40.9 % (42.0-52.0); LYMPH # 2.4 10*3/uL (1.3-4.4); LYMPH % 36.7 % (27.0-41.0); MEAN CELL VOLUME 92.5 fl (80.0-94.0); MEAN CORPUSCULAR HGB 30.3 pg (27.0-31.0); MEAN CORPUSCULAR HGB CONC 32.8 g/dl (33.0-37.0); MONO # 0.4 10*3/uL (0.1-1.0); NEUT # 3.5 10*3/uL (2.3-7.9); NEUT % 54.2 % (47.0-73.0); PLATELET COUNT AUTOMATED 183 10*3/uL (130-400); RED BLOOD COUNT 4.42 10*6/uL (4.50-5.90); RED CELL DISTRI WIDTH 13.8 % (0-14.5); WHITE BLOOD COUNT 6.5 10*3/uL (4.8-10.8)
[2022-04-29 20:34] LABS: ACT PARTIAL THROMBO TIME 25.9 SECONDS (20.0-32.1); INTERNATIONAL NORM RATIO 1.1 (2.0-3.5)
[2022-04-29 20:48] LABS: ALKALINE PHOSPHATASE 77 U/L (46-116); BUN 24 mg/dl (9-23); CHLORIDE 106 mmol/L (98-107); CPK 277 U/L (34-171); MYOGLOBIN 368.8 ng/ml (16-116); POTASSIUM 3.2 mmol/L (3.4-5.1); SGPT/ALT 36 U/L (10-49); TOTAL PROTEIN 6.7 gm/dL (6.0-8.0)
[2022-04-29 20:56] LABS: BILIRUBIN Negative (Negative); BLOOD Negative (Negative); CLARITY Clear (Clear); COLOR Yellow (Yellow); GLUCOSE Negative (Negative); KETONE Negative (Negative); LEUKO ESTERASE Negative (Negative); NITRITE Negative (Negative); SPECIFIC GRAVITY 1.025 (1.001-1.030)
[2022-04-29 20:58] LABS: ETHYL ALCOHOL 409.2 mg/dl (<3)
[2022-04-29 21:04] LABS: URINE AMPHETAMINES Positive (1000ng/ml); URINE BARBITURATES Negative (200ng/ml); URINE BENZODIAZEPINES Negative (200ng/ml); URINE CANNABINOIDS (THC) Negative (50ng/ml); URINE COCAINE Negative (300ng/ml); URINE METHADONE Negative (300ng/ml); URINE OPIATES Negative (300ng/ml); URINE PHENCYCLIDINE Negative (25ng/ml)
[2022-04-29 21:08] LABS: EPITHELIAL CELLS 0-2; MUCOUS TRACE
[2022-04-30 05:29] VITALS: BP 118/64
== END 2022-04-30 16:20 | disposition home or self-care (01) ==
LOC: ED 19:00
PROVIDERS: Emergency Medicine
DX: F10.10 Alcohol abuse, uncomplicated (principal); Y90.3 Blood alcohol level of 60-79 mg/100 ml; J44.9 Chronic obstructive pulmonary disease, unspecified; F11.10 Opioid abuse, uncomplicated; F19.10 Other psychoactive substance abuse, uncomplicated; Z88.0 Allergy status to penicillin; Z91.041 Radiographic dye allergy status; F90.9 Attention-deficit hyperactivity disorder, unspecified type; Z98.890 Other specified postprocedural states; Z87.891 Personal history of nicotine dependence

== ENCOUNTER 2022-05-14 02:38 | Emergency (ER) | payer MEDICARE, OTHER ==
[~2022-05-14] VITALS: Wt 56.2 kg
[2022-05-14 02:54] VITALS: BP 133/100
[2022-05-14] MEDS ORDERED: NAPROXEN250 MG PO (03:19)
== END 2022-05-14 03:25 | disposition home or self-care (01) ==
LOC: ED 02:38
DX: M79.641 Pain in right hand (principal); G89.29 Other chronic pain; Z88.0 Allergy status to penicillin; Z91.041 Radiographic dye allergy status; Z98.890 Other specified postprocedural states; Z87.891 Personal history of nicotine dependence; F14.10 Cocaine abuse, uncomplicated; F11.10 Opioid abuse, uncomplicated

== ENCOUNTER 2022-09-20 12:37 | Emergency (ER) | payer OTHER, MEDICAID ==
[~2022-09-20] VITALS: Ht 162.5 cm; Wt 65.8 kg
[~2022-09-20 12:37] MED LIST changes: +NAPROXEN250 MG PO
[2022-09-20 12:43] VITALS: BP 133/82
[2022-09-20 13:28] LABS: BASO % 0.4 % (0.0-1.0); EOS % 0.1 % (1.0-4.0); HEMATOCRIT 38.3 % (42.0-52.0); LYMPH % 13.4 % (27.0-41.0); MEAN CELL VOLUME 93.6 fl (80.0-94.0); MEAN CORPUSCULAR HGB 30.8 pg (27.0-31.0); MEAN CORPUSCULAR HGB CONC 32.9 g/dl (33.0-37.0); MEAN PLATELET VOLUME 9.1 fl (9.6-12.3); MONO # 0.5 10*3/uL (0.1-1.0); MONO % 6.8 % (3.0-9.0); NEUT # 6.1 10*3/uL (2.3-7.9); PLATELET COUNT AUTOMATED 189 10*3/uL (130-400); RED BLOOD COUNT 4.09 10*6/uL (4.50-5.90); RED CELL DISTRI WIDTH 13.7 % (0-14.5); WHITE BLOOD COUNT 7.7 10*3/uL (4.8-10.8)
[2022-09-20 14:02] LABS: BILIRUBIN Negative (Negative); BLOOD 1+ (Negative); CLARITY Clear (Clear); COLOR Yellow (Yellow); GLUCOSE Negative (Negative); KETONE 1+ (Negative); LEUKO ESTERASE Negative (Negative); NITRITE Negative (Negative); PH 5.5 (4.5-8.0); SPECIFIC GRAVITY 1.025 (1.001-1.030)
[2022-09-20 14:10] LABS: URINE AMPHETAMINES Positive (1000ng/ml); URINE BARBITURATES Negative (200ng/ml); URINE BENZODIAZEPINES Negative (200ng/ml); URINE CANNABINOIDS (THC) Positive (50ng/ml); URINE COCAINE Positive (300ng/ml); URINE METHADONE Negative (300ng/ml); URINE OPIATES Negative (300ng/ml); URINE PHENCYCLIDINE Negative (25ng/ml)
[2022-09-20 14:15] LABS: BACTERIA TRACE; RBC 0-2 rbc/hpf (0-2); WBC 0-2 wbc/hpf (0-5)
[2022-09-20 14:20] LABS: ALKALINE PHOSPHATASE 64 U/L (46-116); BUN 20 mg/dl (9-23); CHLORIDE 106 mmol/L (98-107); POTASSIUM 3.9 mmol/L (3.4-5.1); SGPT/ALT 64 U/L (10-49); TOTAL PROTEIN 7.2 gm/dL (6.0-8.0)
[2022-09-20 14:21] LABS: ETHYL ALCOHOL < 3.0 mg/dl (<3)
== END 2022-09-20 19:28 | disposition home or self-care (01) ==
LOC: ED 12:37
PROVIDERS: Emergency Medicine
DX: F19.10 Other psychoactive substance abuse, uncomplicated (principal); Z88.0 Allergy status to penicillin; Z91.041 Radiographic dye allergy status; Z98.890 Other specified postprocedural states; F17.200 Nicotine dependence, unspecified, uncomplicated; Z79.899 Other long term (current) drug therapy

== ENCOUNTER 2023-08-01 13:52 | Emergency (ER) | payer OTHER ==
[2023-08-01] MEDS ORDERED: Naloxone Hydrochloride 2 MG/2 ML SYR ONE ×2 (13:57→14:10)
[2023-08-01] MEDS ORDERED: Naloxone Hydrochloride 2 MG/2 ML SYR IV ONE (14:00)
[2023-08-01 14:25] VITALS: BP 168/86
== END 2023-08-01 14:26 | disposition left against medical advice (07) ==
LOC: ED 13:52
DX: T50.901A Poisoning by unspecified drugs, medicaments and biological substances, accidental (unintentional), initial encounter (principal); R40.4 Transient alteration of awareness; F17.200 Nicotine dependence, unspecified, uncomplicated; Z88.0 Allergy status to penicillin; Z91.041 Radiographic dye allergy status; Z98.890 Other specified postprocedural states; Z53.29 Procedure and treatment not carried out because of patient's decision for other reasons; Y92.89 Other specified places as the place of occurrence of the external cause